=== PATIENT | male | born 1965 | race Caucasian/White ===

== ENCOUNTER 2016-10-26 22:31 | Emergency (ER) | payer MEDICAID, OTHER ==
[~2016-10-26] VITALS: Ht 170.2 cm; Wt 72.0 kg
[2016-10-26 22:36] VITALS: Ht 170.2 cm; Wt 72.0 kg
[2016-10-26] MEDS ORDERED: ONDANSETRON 4 MG INJ IV STA (23:19)
[2016-10-26] MEDS ORDERED: FAMOTIDINE 20 MG INJ IV STA (23:19)
[2016-10-26] MEDS ORDERED: SOD CHLORIDE 0.9% 1,000 ML IV STA (23:19)
[2016-10-27 00:01] LABS: ADD SCAN DIFF NO
[2016-10-27 00:06] LABS: BASOPHILS % 0.4 % (0.0-2.0); EOSINOPHILS # 0.1 10^3/ul (0.0-0.5); EOSINOPHILS % 0.8 % (0.0-7.0); HEMOGLOBIN 14.4 g/dl (14.0-18.0); LYMPHOCYTES # 4.3 10^3/ul (0.8-2.9); LYMPHOCYTES % 56.1 % (15.0-51.0); MEAN CORPUSCULAR HEMOGLOBIN 29.8 pg (29.0-33.0); MEAN CORPUSCULAR HGB CONC 33.5 g/dl (32.0-37.0); MEAN PLATELET VOLUME 9.6 fl (7.4-10.4); MONOCYTE # 0.5 10^3/ul (0.3-0.9); MONOCYTES % 6.2 % (0.0-11.0); NEUTROPHIL # 2.8 10^3/ul (1.6-7.5); NEUTROPHILS % 36.1 % (39.0-77.0); PLATELET COUNT 264 10^3/UL (140-415); RED BLOOD COUNT 4.83 10^6/ul (4.70-6.10); RED CELL DISTRIBUTION WIDTH 12.8 % (11.5-14.5); WHITE BLOOD COUNT 7.7 10^3/ul (4.8-10.8)
[2016-10-27 00:47] LABS: ALBUMIN 4.5 g/dl (3.3-4.9); ALBUMIN/GLOBULIN RATIO 1.21; BILIRUBIN,INDIRECT 0.5 mg/dl (0-1.1); BILIRUBIN,TOTAL 0.5 mg/dl (0.2-1.3); CALCIUM 9.4 mg/dl (8.4-10.2); CREATININE 0.69 mg/dl (0.61-1.24); POTASSIUM 4.1 mmol/L (3.5-5.1); TOTAL PROTEIN 8.2 g/dl (6.1-8.1)
[2016-10-27 00:48] LABS: URINE BLOOD (Dip) POC Negative (NEGATIVE)
--- NOTE | 2016-10-27 00:48 | RADRPT ---
PROCEDURE: CT Abdomen and pelvis without contrast. CLINICAL INDICATION: Abdominal pain. TECHNIQUE: CT scan of the abdomen and pelvis was performed on a multi-detector high-resolution CT scanner. Contiguous axial images were obtained from the lung bases to the ischial tuberosities wit hout intravenous contrast. Coronal and sagittal reformatted images were also obtained. Images were reviewed on the PACS workstation. One or more of the following dose reduction techniques were used: - Automated exposure control. - Adjustment of the mA and/or kV according to patient size. - Use of iterative reconstruction technique. Exam CTD/vol = 8.15 mGy. Total exam DLP = 497.34 mGy-cm. COMPARISON: None. FINDINGS: Evaluation of the lung bases demonstrates no pleural or parenchymal disease. Abdomen: The liver is normal in size. There is no focal mass or dilatation of the biliary tree. T he gallbladder is not distended. Multiple small gallstones identified. The spleen, pancreas and bi lateral adrenal glands are within normal limits. Bilateral kidneys are normal in size with no conto ur deforming mass identified. There is no radiopaque renal or ureteral calculus identified. There is no hydronephrosis or hydroureter. There is no retroperitoneal adenopathy. The abdominal aorta i s of normal caliber. There is moderate retained stool within the colon. There is no bowel obstruction or free air. A no rmal appendix is identified. There is no diverticulosis or diverticulitis. There is minimal strandi ng of the left mesenteric fat. There is no ascites. Pelvis: The bladder is unremarkable. The prostate and seminal vesicles are within normal limits. There is no significant pelvic adenopathy or free fluid. Evaluation of the osseous structures demonstrates no suspicious lytic or blastic lesion. IMPRESSION: No acute abnormality identified within the abdomen and pelvis. Moderate retained stool within the colon. Minimal stranding of the left mesenteric fat represents nonspecific mesenteritis. Cholelithiasis. .Titi Thomas MD, MD Date Time Electronically viewed and signed by .Titi Thomas MD, MD on 10/27/2016 00:48 .T/
[2016-10-27 00:53] LABS: ADD UMIC NO; URINE BILIRUBIN (Dip) NEGATIVE (NEGATIVE); URINE BLOOD (Dip) NEGATIVE (NEGATIVE); URINE COLOR LT. YELLOW (YELLOW); URINE GLUCOSE (Dip) NEGATIVE (NEGATIVE); URINE KETONES (Dip) NEGATIVE (NEGATIVE); URINE LEUKOCYTE ESTERASE (Dip) NEGATIVE (NEGATIVE); URINE NITRITE (Dip) NEGATIVE (NEGATIVE); URINE TOTAL PROTEIN (Dip) NEGATIVE (NEGATIVE); URINE UROBILINOGEN (Dip) 0.2 E.U./dL (0.1-1.0)
--- NOTE | 2016-10-27 01:08 | ERD ---
ER Documentation Chief Complaint Date/Time DATE: 10/27/16 TIME: 01:06 Chief Complaint Pt c/o ap pain, pain with urination and BM. Pt reports black stool for 2 wk HPI This is a 51-year-old male presents to the emergency room with a chief complaint of abdominal pain, painful urination, and dark stools for the past 2 weeks. The patient states that he has been taking Motrin for his abdominal pain which localized to the lower portion of his abdomen. He denies any nausea or vomiting associated with this and came to the ER today for evaluation of his dark stools and abdominal cramping and painful urination ROS All systems reviewed and are negative except as per history of present illness. PMhx/Soc Medical and Surgical Hx: pt denies Medical Hx, pt denies Surgical Hx Hx Alcohol Use: No Hx Substance Use: No Hx Tobacco Use: No Smoking Status: Never smoker Physical Exam Vitals Vital Signs Date Time Temp Pulse Resp B/P Pulse Ox O2 Delivery O2 Flow Rate FiO2 10/26/16 23:30 99.1 89 18 137/99 99 Room Air 10/26/16 22:36 99.1 75 18 152/96 100 Physical Exam INITIAL VITAL SIGNS: Reviewed by me GENERAL: The patient is well developed and appropriate for usual state of health in no apparent distress HEENT: Pupils equal, round, and reactive to light. EOMI. There is no scleral icterus. NECK: C-spine is soft and supple, there is no meningismus. There is no cervical lymphadenopathy. LUNGS: Clear to auscultation bilaterally. There are no rales, wheezes or rhonchi. HEART: Regular rate and rhythm, no murmurs, clicks, rubs or gallops. ABDOMEN: Suprapubic tenderness to palpation, otherwise soft, non-tender, non- distended. There are bowel sounds in all four quadrants. No rebound or guarding. EXTREMITIES: There is no peripheral cyanosis or edema. No focal swelling or erythema. NEUROLOGICAL: The patient moves all four extremities with 5/5 strength. Cranial nerves II - XII are intact. Normal gait. Alert and oriented SKIN: There is no apparent rash or petechiae. HEME/LYMPHATIC: There is no evidence of excessive bruising or lymphedema. PSYCHIATRIC: The patient does not appear anxious or depressed. Result Diagram: 4/15/17 2330 4/15/17 2330 Results 24 hrs Laboratory Tests Test 10/26/16 23:30 10/27/16 00:47 White Blood Count 7.710^3/ul Red Blood Count 4.8310^6/ul Hemoglobin 14.4g/dl Hematocrit 43.0% Mean Corpuscular Volume 89.0fl Mean Corpuscular Hemoglobin 29.8pg Mean Corpuscular Hemoglobin Concent 33.5g/dl Red Cell Distribution Width 12.8% Platelet Count 15260^3/UL Mean Platelet Volume 9.6fl Neutrophils % 36.1% Lymphocytes % 56.1% Monocytes % 6.2% Eosinophils % 0.8% Basophils % 0.4% Nucleated Red Blood Cells % 0.0/100WBC Neutrophils # 2.810^3/ul Lymphocytes # 4.310^3/ul Monocytes # 0.510^3/ul Eosinophils # 0.110^3/ul Basophils # 0.010^3/ul Nucleated Red Blood Cells # 0.010^3/ul Urine Color LT. YELLOW Urine Clarity CLEAR Urine pH 5.5 Urine Specific [place] 1.025 Urine Ketones NEGATIVE Urine Nitrite NEGATIVE Urine Bilirubin NEGATIVE Urine Urobilinogen 0.2 E.U./dL Urine Leukocyte Esterase NEGATIVE Urine Hemoglobin NEGATIVE Urine Glucose NEGATIVE% Urine Total Protein NEGATIVE Sodium Level 142mmol/L Potassium Level 4.1mmol/L Chloride Level 105mmol/L Carbon Dioxide Level 30mmol/L Anion Gap 11 Blood Urea Nitrogen 24mg/dl Creatinine 0.69mg/dl Glucose Level 107mg/dl Calcium Level 9.4mg/dl Total Bilirubin 0.5mg/dl Direct Bilirubin 0.00mg/dl Indirect Bilirubin 0.5mg/dl Aspartate Amino Transf (AST/SGOT) 41IU/L Alanine Aminotransferase (ALT/SGPT) 40IU/L Alkaline Phosphatase 74IU/L Total Protein 8.2g/dl Albumin 4.5g/dl Globulin 3.70g/dl Albumin/Globulin Ratio 1.21 Lipase 70U/L Bedside Urine pH (LAB) 5.5 Bedside Urine Protein (LAB) Negative Bedside Urine Glucose (UA) Negative Bedside Urine Ketones (LAB) Negative Bedside Urine Blood Negative Bedside Urine Nitrite (LAB) Negative Bedside Urine Leukocyte Esterase (L Negative Current Medications Medications (Trade) Dose Ordered Sig/Bernabe Route PRN Reason Start Time Stop Time Status Last Admin Dose Admin Sodium Chloride (NS) 1,000 ml @ 1,000 mls/hr Q1H STAT IV 10/26/16 23:19 10/27/16 00:18 DC 10/26/16 23:26 Ondansetron HCl (Zofran Inj) 4 mg ONCE STAT IV 10/26/16 23:19 10/26/16 23:20 DC 10/26/16 23:26 Famotidine (Pepcid Iv) 20 mg ONCE STAT IV 10/26/16 23:19 10/26/16 23:20 DC 10/26/16 23:26 Procedures/MDM CT abdomen pelvis without: No acute abnormality identified within the abdomen and pelvis. Moderate retained stool within the colon. Minimal stranding of the left mesenteric fat represents nonspecific mesenteritis. Cholelithiasis. This 51-year-old male presents to the emergency room for evaluation of abdominal cramping and pain and dark stools. The patient also complained of a painful urination. I evaluated this patient he is hemodynamically stable. Lab work reveals a hemoglobin of 14, no active GI bleed. Urinalysis is within normal limits. This patient did have a CAT scan of the abdomen pelvis which shows a nonspecific mesenteritis. Given this patient's complaints and symptoms of patient will be treated for Cipro and Flagyl. I advised him and he needs to follow-up with his primary care physician to get an outpatient referral for colonoscopy if he continues to have dark stools. I advised him Motrin can increase his dark stools in a instructed him to discontinue the use of Motrin. He verbalized understanding. Patient will be discharged home at this time Departure Diagnosis: Primary Impression: Abdominal pain Additional Impression: Enteritis Condition: Stable BHAVANI JOHN DO Oct 27, 2016 01:08
[2016-10-27] MEDS ORDERED: METR500T PO (01:09)
[2016-10-27] MEDS ORDERED: CIPR500T4 PO (01:09)
[2016-10-27 01:31] VITALS: BP 111/78; PULSE 72; RESP 18; TEMP 98.9
== END 2016-10-27 01:31 | disposition home or self-care (01) ==
LOC: E/R 22:31
DX: R10.30 Lower abdominal pain, unspecified (principal); K52.9 Noninfective gastroenteritis and colitis, unspecified
CPT/HCPCS: 74176; 80053; 81003; 83690; 85025; J2405; J7030; Z7610; 36415; 96374; 96375

== ENCOUNTER 2018-10-17 22:11 | Emergency (ER) | payer OTHER ==
[~2018-10-17] VITALS: Wt 73.8 kg
[~2018-10-17 22:11] MED LIST: CIPR500T4 PO; METR500T PO
[2018-10-18] MEDS ORDERED: SOD CHLORIDE 0.9% 1,000 ML IV STA (00:41)
[2018-10-18] MEDS ORDERED: ONDANSETRON 4 MG INJ IV STA (00:41)
[2018-10-18] MEDS ORDERED: BELLADONNA/PHENOBARBITAL TAB PO STA (02:33)
[2018-10-18] MEDS ORDERED: LIDOCAINE/MYLANTA 40 ML BTL PO STA (02:33)
[2018-10-18] MEDS ORDERED: FAMOTIDINE 20 MG INJ IV STA (02:33)
--- NOTE | 2018-10-18 03:02 | ERD ---
ER Documentation Chief Complaint Chief Complaint abd pain/diarrhea x 1 day HPI This is a 53-year-old male with a past medical history of testicular surgery who is presenting with 1 day of fever, chills, myalgias, a mild general headache, migrating cramping waxing and waning moderate abdominal pain with nausea, no episodes of vomiting, and multiple episodes of loose watery brown nonbloody diarrhea. The patient does report that his stools have been darker than usual. The patient does not endorse any exacerbating or alleviating factors. He denies constipation. He denies dysuria or hematuria or urgency or frequency. The patient has had no vision changes. The patient has not had any photophobia or phonophobia or blurry or double vision. The patient does not endorse neck or back pain. The patient denies lightheadedness or dizziness. The patient has had no chest pain or trouble breathing. The patient has had no focal deficits. The patient has had no weakness or numbness or tingling to the face or extremities. ROS All systems reviewed and are negative except as per history of present illness. Medications Home Meds Active Scripts Metronidazole* (Flagyl*) 500 Mg Tablet, 500 MG PO Q8 for 7 Days, #21 TAB Prov:BHAVANI JOHN DO 10/27/16 Ciprofloxacin Hcl* (Ciprofloxacin Hcl*) 500 Mg Tablet, 500 MG PO BID, #14 TAB Prov:BHAVANI JOHN DO 10/27/16 Allergies Allergies: Coded Allergies: No Known Drug Allergies (Verified Allergy, Unknown, 10/17/18) PMhx/Soc History of Surgery: Yes (testicular sx) Anesthesia Reaction: No Hx Neurological Disorder: No Hx Respiratory Disorders: No Hx Cardiac Disorders: No Hx Psychiatric Problems: No Hx Miscellaneous Medical Probl: No Hx Alcohol Use: No Hx Substance Use: No Hx Tobacco Use: No Smoking Status: Never smoker FmHx Family History: No diabetes Physical Exam Vitals Vital Signs Date Temp Pulse Resp B/P (MAP) Pulse Ox O2 O2 Flow FiO2 Time Delivery Rate 10/17/18 100.0 105 20 137/88 97 22:13 (104) Physical Exam Const: No apparent distress, well-developed, well-nourished Head: Normocephalic, Atraumatic Eyes: Normal Conjunctiva. Extraocular movements intact. Pupils equal, round and reactive to light ENT: Normal External Ears, Nose and Mouth. Neck: Full range of motion. No meningismus. Resp: Clear to auscultation bilaterally, No wheezes, rales or rhonchi Cardio: Regular rate and rhythm. No murmurs, rubs or gallops Abd: Soft, non distended. Suprapubic and epigastric tenderness, mild. Genera l abdominal discomfort without exquisite tenderness. No rebound or guarding. Normal bowel sounds Skin: No petechiae or rashes Back: No midline tenderness. No CVA tenderness Ext: No cyanosis, or edema Neur: Awake and alert, oriented 4. Cranial nerves intact. No facial droop. Normal strength, sensation and coordination. Psych: Normal Mood and Affect Result Diagram: 10/18/184610/18/1846 Results 24 hrs Laboratory Tests Test 10/18/18 00:47 White Blood Count 8.6 10^3/ul Red Blood Count 5.19 10^6/ul Hemoglobin 15.6 g/dl Hematocrit 44.5 % Mean Corpuscular Volume 85.7 fl Mean Corpuscular Hemoglobin 30.1 pg Mean Corpuscular Hemoglobin Concent 35.1 g/dl Red Cell Distribution Width 12.5 % Platelet Count 252 10^3/UL Mean Platelet Volume 9.3 fl Immature Granulocytes % 0.300 % Neutrophils % 82.7 % Lymphocytes % 10.4 % Monocytes % 6.1 % Eosinophils % 0.3 % Basophils % 0.2 % Nucleated Red Blood Cells % 0.0 /100WBC Immature Granulocytes # 0.030 10^3/ul Neutrophils # 7.1 10^3/ul Lymphocytes # 0.9 10^3/ul Monocytes # 0.5 10^3/ul Eosinophils # 0.0 10^3/ul Basophils # 0.0 10^3/ul Nucleated Red Blood Cells # 0.0 10^3/ul Urine Color YELLOW Urine Clarity SLIGHTLY CLOUDY Urine pH 5.0 Urine Specific [place] 1.033 Urine Ketones NEGATIVE mg/dL Urine Nitrite NEGATIVE mg/dL Urine Bilirubin NEGATIVE mg/dL Urine Urobilinogen NEGATIVE mg/dL Urine Leukocyte Esterase NEGATIVE [place]/ul Urine Microscopic RBC 1 /HPF Urine Microscopic WBC 2 /HPF Urine Mucus MANY /HPF Urine Hemoglobin 1+ mg/dL Urine Glucose NEGATIVE mg/dL Urine Total Protein NEGATIVE mg/dl Sodium Level 141 mmol/L Potassium Level 3.5 mmol/L Chloride Level 105 mmol/L Carbon Dioxide Level 21 mmol/L Anion Gap 15 Blood Urea Nitrogen 29 mg/dl Creatinine 0.83 mg/dl Est Glomerular Filtrat Rate mL/min > 60 mL/min Glucose Level 113 mg/dl Calcium Level 9.1 mg/dl Total Bilirubin 1.4 mg/dl Direct Bilirubin 0.00 mg/dl Indirect Bilirubin 1.4 mg/dl Aspartate Amino Transf (AST/SGOT) 31 IU/L Alanine Aminotransferase (ALT/SGPT) 29 IU/L Alkaline Phosphatase 69 IU/L Total Protein 8.3 g/dl Albumin 4.7 g/dl Globulin 3.60 g/dl Albumin/Globulin Ratio 1.30 Lipase 29 U/L Current Medications Medications Dose Sig/Bernabe Start Time Status Last (Trade) Ordered Route PRN Stop Time Admin Dose Reason Admin Sodium 1,000 ml @ Q1H STAT 10/18/18 DC 10/18/18 Chloride 1,000 mls/hr IV 00:41 10/18/18 00:56 01:40 Ondansetron 4 mg ONCE STAT 10/18/18 DC 10/18/18 HCl (Zofran IV 00:41 10/18/18 00:56 Inj) 00:43 Famotidine 20 mg ONCE STAT 10/18/18 DC 10/18/18 (Pepcid Iv) IV 02:33 10/18/18 02:50 02:36 40 ml ONCE STAT 10/18/18 DC 10/18/18 Miscellaneous PO 02:33 10/18/18 02:49 Medication 02:36 (Gi Cocktail (2)) Belladonna/ 2 tab ONCE STAT 10/18/18 DC 10/18/18 Phenobarbital PO 02:33 10/18/18 02:50 () 02:36 Procedures/MDM MDM The patient's presentation warrants further investigation. Previous medical records, if available, were reviewed. LABS The patient's laboratory testing was obtained and reviewed. No emergent treatment was required unless described below. CBC: No E/o systemic infection or severe anemia or thrombocytopenia Chemistry: No E/o severe acidosis or alkalosis or renal failure or liver disease or diabetic ketoacidosis. Elevated BUN concerning for dehydration versus the possibility of an upper GI bleed. Lipase: No E/o pancreatitis Urine: No E/o acute infection or hematuria TREATMENT/DISPOSITION The patient presents with reported migrating nonspecific abdominal pain, nausea and a few episodes of diarrhea. The patient also reports fever at home. A viral syndrome versus gastroenteritis are also possibilities. The patient does not appear septic. His white count is within normal limits. I do not feel the patient requires a full septic workup. I do not believe the patient would benefit from antibiotics at this time. The patient reports that his stool has been darker in color. The patient did have mild epigastric tenderness on my exam. Gastritis versus PUD versus GERD are possibilities. The patient's BUN is elevated, which occurs occasionally and an upper GI bleed. That said, the patient's hemoglobin is normal and his vital signs are normal as well. I do have decreased suspicion for GI bleeding at this time. The patient was treated with IV fluids, Zofran, Pepcid and a GI cocktail with improvement of his symptoms. The patient also had mild suprapubic tenderness. However, the patie nt's urinalysis is unremarkable. I do not suspect a urinary tract infection. The patient does not have any evidence of peritonitis. The patient does not have clinical symptoms concerning for mesenteric ischemia or ischemic colitis. The patient does not have right upper quadrant tenderness, and I have low suspicion for gallstones, cholecystitis or biliary colic. The patient does not have left upper quadrant tenderness. I have low suspicion for pancreatitis. The patient does not have any right lower quadrant tenderness, or periumbilical tenderness. I have low suspicion for appendicitis. The patient does not have any left lower quadrant tenderness, and I have low suspicion for diverticulosis or diverticulitis. The patient does not have any flank tenderness. The patient does not have gross hematuria. I have decreased suspicion for nephrolithiasis or renal colic. The patient does not have any palpable pulsatile mass or severe abdominal pain radiating to the back. I have low suspicion for aortic aneurysm, dissection or rupture. The patient does report a mild headache as well. I suspect that this is related to his viral syndrome. Differential diagnosis includes migraine, tension headache, cluster headache. The patient has no focal deficits. The neurologic exam is reassuring. I have decreased suspicion for cerebral ischemia. There was no trauma or injury. There is no personal or family history of cerebral aneurysm. This is not the worst headache of the patient's life. It was not acutely severe. It is been progressive in nature. I have decreased suspicion for SAH or other ICH. I have low suspicion for temporal arteritis, cavernous venous thrombosis, subdural hematoma, epidural hematoma, meningitis. I do not feel the patient requires any imaging of his head. DISCHARGE Upon reevaluation of the patient, symptoms have improved. No emergent diagnoses were identified. At this time, I feel that the patient stable for discharge. The patient was instructed to follow-up with a primary care physician in 1-3 days. The patient will be given strict precautions with which to return to the emergency department. Prescriptions: Pepcid, Zofran The patient's blood pressure was elevated at greater than 120/80 while in the emergency department. The patient was otherwise stable with no evidence of hypertensive urgency or emergency. The patient does not require admission for blood pressure control. I have discussed with the patient the risks of hypertension. I have instructed the patient to return to the ER for any new or worsening symptoms including chest pain, shortness of breath, headache, blurred vision, confusion, nausea, vomiting or LOC. I have advised the patient to follow up with the primary care physician for outpatient monitoring and treatment for h ypertension in 1-3 days. Disclaimer: Inadvertent spelling and grammatical errors are likely due to EHR/dictation software use and do not reflect on the overall quality of patient care. Note that the electronic time recorded on this note does not necessarily reflect the actual time of the patient encounter. Departure Diagnosis: Primary Impression: Abdominal pain Abdominal location: generalized Qualified Codes: R10.84 - Generalized abdominal pain Additional Impressions: Nausea Diarrhea Diarrhea type: unspecified type Qualified Codes: R19.7 - Diarrhea, unspecified Elevated BUN Headache Headache type: unspecified Headache chronicity pattern: acute headache Intractability: not intractable Qualified Codes: R51 - Headache Condition: Stable Patient Instructions: Abdominal Pain, Self-Care for Vomiting and Diarrhea, Self-Care for Headaches Additional Instructions: Thank you for for coming to [facility] for your care today. Please ask your nurse or provider if you have questions about your care today and do not leave until all your questions have been answered. Please use any medications given as directed and follow-up with your doctor (or the doctor you were referred to) in the next 1-3 days. If you do not have a primary care doctor you may follow [place] [facility] (listed below). You may also use motrin and tylenol as needed for fever and/or pain unless instructed otherwise by your provider or nurse. Indications for more urgent follow-up have been discussed, but you may return to the Emergency Department at ANY time for any worrisome or worsening symptoms. If you have abdominal pain, please know that no test or exam you received is perfect and you should follow up within 8 hours for continued pain. If you had any imaging studies today, such as an X-Ray or CT Scan, these studies will be reviewed later by a radiologist. You will be called if there are important findings that were not identified today, so make sure the contact information you provided at registration is correct. If you received any narcotic pain control medicine today, such as Vicodin, Morphine or Dilaudid, your coordination and judgment may be affected for a number of hours. Please do not drive or operate heavy machinery, and you may want someone to assist you at home. If you were given a prescription for narcoti c medication, be aware that it is very addictive- use sparingly and only if necessary. PLEASE SEEK FURTHER EVALUATION AND MANAGEMENT AT YOUR DOCTORS OFFICE WITHIN THE NEXT 1-3 DAYS. IT IS YOUR RESPONSIBILITY TO MAKE AN APPOINTMENT FOR FOLOW-UP CARE. IF YOU HAVE A PRIMARY DOCTOR, PLEASE CALL THEIR OFFICE TO SCHEDULE AN APPOINTMENT FOR FOLLOW UP. IF YOU DO NOT HAVE A PRIMARY DOCTOR YOU CAN CALL OUR PHYSICIAN REFERRAL HOTLINE AT IF YOU CAN NOT AFFORD TO SEE A PHYSICIAN YOU CAN CHOSE FROM THE FOLLOWING [facility]ICS: [facility] [address] [facility] [facility] [address] [facility]. [facility] [address] [facility]. [facility] [address] [facility]. [facility] [address] [facility]. [facility]. [address] LISETTE SUTHERLAND MD Oct 18, 2018 03:01
[2018-10-18] MEDS ORDERED: FAMO-96 PO (03:03)
[2018-10-18] MEDS ORDERED: ONDA8TAB9 PO (03:03)
[2018-10-18 03:50] VITALS: BP 107/87; PULSE 82; RESP 17
== END 2018-10-18 03:50 | disposition home or self-care (01) ==
LOC: E/R 22:11
DX: R10.84 Generalized abdominal pain (principal); R11.0 Nausea; R19.7 Diarrhea, unspecified; R51 Headache; R79.89 Other specified abnormal findings of blood chemistry
CPT/HCPCS: 36415; 80053; 81001; 83690; 85025; 96374; 96375; J2405; J7030; Z7502; Z7610

== ENCOUNTER 2019-03-31 12:43 | Day surgery (SDC) | payer OTHER ==
[~2019-03-31] VITALS: Ht 167.6 cm; Wt 71.1 kg
[~2019-03-31 12:43] MED LIST changes: +FAMO-96 PO; +ONDA8TAB9 PO
[2019-03-31 13:36] VITALS: Ht 167.6 cm; Wt 71.1 kg
[2019-03-31 14:13] VITALS: BP 131/75; PULSE 90; RESP 19
[2019-03-31] MEDS ORDERED: PROPOFOL 20 ML ONE ×2 (15:51→16:13)
[2019-03-31 16:43] VITALS: BP 116/79; PULSE 77; RESP 18
== END 2019-03-31 17:52 | disposition home or self-care (01) ==
LOC: GIL 12:43
PROVIDERS: ATTEND Internal Medicine Gastroenterology
DX: Z12.11 Encounter for screening for malignant neoplasm of colon (principal); D12.2 Benign neoplasm of ascending colon; K64.8 Other hemorrhoids; K20.8 Other esophagitis
CPT/HCPCS: 43239; 45380; Z7610; 88305